=== PATIENT | male | born 1940 | race Caucasian/White ===

== ENCOUNTER 2018-06-20 14:29 | Inpatient (IN) | payer OTHER ==
[~2018-06-20] VITALS: Ht 180.3 cm; Wt 79.0 kg
[~2018-06-20 14:29] MED LIST: DOCU-131 PO; NONE PER PT; OXYC-302 PO
[2018-06-20 14:59] LABS: BASOPHILS # (AUTO) 0.01 x10^3/uL (0-0.1); BASOPHILS % (AUTO) 0 % (0-1); EOSINOPHILS # (AUTO) 0.19 x10^3/uL (0-0.4); EOSINOPHILS % (AUTO) 2 % (1-7); LYMPHOCYTES # (AUTO) 0.28 x10^3/uL (1-3.4); LYMPHOCYTES % (AUTO) 3 % (22-44); MD NO; MEAN CORPUSCULAR HEMOGLOBIN 31.2 pg (27.5-34.5); MEAN CORPUSCULAR HGB CONC 34.1 g/dL (33.2-36.2); MEAN CORPUSCULAR VOLUME 91.5 fL (81-97); MEAN PLATELET VOLUME 8.1 fL (7.4-10.4); MONOCYTES # (AUTO) 0.32 x10^3/uL (0.2-0.8); MONOCYTES % (AUTO) 3 % (2-9); NEUTROPHILS # (AUTO) 9.59 x10^3/uL (1.8-6.8); NEUTROPHILS % (AUTO) 92 % (42-75); PLATELET COUNT 244 x10^3/uL (130-400); RED BLOOD COUNT 4.36 x10^6/uL (4.38-5.82); RED CELL DISTRIBUTION WIDTH 13.9 % (9.4-14.8)
[2018-06-20 15:12] LABS: ANION GAP 8 mmol/L (5-15); CALCIUM 8.3 mg/dL (8.5-10.1); CHLORIDE 100 mmol/L (98-107); CREATININE 1.23 mg/dL (0.7-1.3)
[2018-06-20] MEDS ORDERED: SODIUM CHLORIDE FLUSH 10ML SYR IVF ONE (15:30)
[2018-06-20] MEDS ORDERED: PHENAZOPYRIDINE 200 MG TABLET PO ONE (15:30)
[2018-06-20] MEDS ORDERED: SODIUM CHLORIDE 0.9% 1,000ML IVBOLUS ONE ×2 (15:30→17:30)
[2018-06-20] MEDS ORDERED: ACETAMINOPHEN 500 MG TABLET PO ONE (15:30)
[2018-06-20 15:47] LABS: MICROSCOPIC NOT IND
[2018-06-20 15:52] LABS: CULTURE INDICATED? NO
[2018-06-20] MEDS ORDERED: OMNIPAQUE 350 MG/ML, 100ML BOTTLE ONE (16:18)
[2018-06-20] MEDS ORDERED: METRONIDAZOLE PMX 500MG/100ML 100 ML ONE (17:18)
[2018-06-20] MEDS ORDERED: SODIUM CHLORIDE 0.9% 1,000 ML IV ONE (17:30)
[2018-06-20] MEDS ORDERED: AMPICILLIN/SULBACTAM 3 GM in SODIUM CHLORIDE 0.9% 100 ML IV ONE (17:30)
[2018-06-20] MEDS ORDERED: METRONIDAZOLE IV ONE (17:30)
[2018-06-20] MEDS ORDERED: METRONIDAZOLE PMX 500MG/100ML 100 ML IV ONE (17:30)
[2018-06-20] MEDS ORDERED: ACETAMINOPHEN 325 MG TABLET PO PRN (18:00)
[2018-06-20] MEDS ORDERED: PROMETHAZINE 25 MG/ML, 1ML IM PRN (18:00)
[2018-06-20] MEDS: METRONIDAZOLE PMX 500MG/100ML 100 ML IV SCH (18:00)
[2018-06-20] MEDS ORDERED: ONDANSETRON ODT 4 MG PO PRN (18:00)
[2018-06-20 18:52] VITALS: BP 105/63
[2018-06-20 19:22] VITALS: BP 105/63
[2018-06-20] MEDS: CIPROFLOXACIN/PMX 400MG/200ML 200 ML IV SCH (20:45)
[2018-06-20] MEDS: SODIUM CHLORIDE 0.9% 1,000 ML IV SCH (20:45)
[2018-06-20] MEDS: LACTOBACILLUS CHEW TABLET PO SCH (20:46)
[2018-06-20] MEDS: ENOXAPARIN 40 MG/0.4 ML SQ SCH (20:46)
[2018-06-21] MEDS: METRONIDAZOLE PMX 500MG/100ML 100 ML IV SCH ×3 (00:22→15:13)
[2018-06-21 00:24] VITALS: BP 116/73
[2018-06-21 05:13] LABS: BASOPHILS % (AUTO) 0 % (0-1); EOSINOPHILS # (AUTO) 0.32 x10^3/uL (0-0.4); EOSINOPHILS % (AUTO) 6 % (1-7); LYMPHOCYTES # (AUTO) 0.36 x10^3/uL (1-3.4); LYMPHOCYTES % (AUTO) 7 % (22-44); MD NO; MEAN CORPUSCULAR HEMOGLOBIN 30.3 pg (27.5-34.5); MEAN CORPUSCULAR HGB CONC 32.7 g/dL (33.2-36.2); MEAN CORPUSCULAR VOLUME 92.7 fL (81-97); MEAN PLATELET VOLUME 8.5 fL (7.4-10.4); MONOCYTES # (AUTO) 0.34 x10^3/uL (0.2-0.8); MONOCYTES % (AUTO) 6 % (2-9); NEUTROPHILS # (AUTO) 4.37 x10^3/uL (1.8-6.8); NEUTROPHILS % (AUTO) 81 % (42-75); PLATELET COUNT 190 x10^3/uL (130-400); RED BLOOD COUNT 3.67 x10^6/uL (4.38-5.82); RED CELL DISTRIBUTION WIDTH 13.9 % (9.4-14.8)
[2018-06-21 05:24] LABS: ANION GAP 6 mmol/L (5-15); CALCIUM 7.5 mg/dL (8.5-10.1); CHLORIDE 106 mmol/L (98-107); CREATININE 0.84 mg/dL (0.7-1.3)
[2018-06-21 06:52] VITALS: BP 100/63
[2018-06-21] MEDS: CIPROFLOXACIN/PMX 400MG/200ML 200 ML IV SCH ×2 (08:45→21:03)
[2018-06-21] MEDS: LACTOBACILLUS CHEW TABLET PO SCH ×3 (08:45→21:03)
[2018-06-21] MEDS: SODIUM CHLORIDE 0.9% 1,000 ML IV SCH (10:37)
[2018-06-21 12:00] LABS: CLOSTRIDIUM DIFFICILE ANTIGEN NEGATIVE; CLOSTRIDIUM DIFFICILE TOXIN NEGATIVE (Negative)
[2018-06-21 12:06] VITALS: BP 137/77
[2018-06-21] MEDS: ENOXAPARIN 40 MG/0.4 ML SQ SCH (17:50)
[2018-06-21 19:52] VITALS: BP 130/82
[2018-06-22] MEDS: SODIUM CHLORIDE 0.9% 1,000 ML IV SCH ×2 (00:25→17:06)
[2018-06-22] MEDS: METRONIDAZOLE PMX 500MG/100ML 100 ML IV SCH ×3 (00:27→17:06)
[2018-06-22 02:22] VITALS: BP 114/70
[2018-06-22 05:19] LABS: BASOPHILS % (AUTO) 0 % (0-1); EOSINOPHILS # (AUTO) 0.32 x10^3/uL (0-0.4); EOSINOPHILS % (AUTO) 12 % (1-7); LYMPHOCYTES # (AUTO) 0.75 x10^3/uL (1-3.4); LYMPHOCYTES % (AUTO) 28 % (22-44); MD NO; MEAN CORPUSCULAR HEMOGLOBIN 31.7 pg (27.5-34.5); MEAN CORPUSCULAR HGB CONC 34.5 g/dL (33.2-36.2); MEAN CORPUSCULAR VOLUME 91.9 fL (81-97); MEAN PLATELET VOLUME 8.6 fL (7.4-10.4); MONOCYTES # (AUTO) 0.44 x10^3/uL (0.2-0.8); MONOCYTES % (AUTO) 16 % (2-9); NEUTROPHILS # (AUTO) 1.15 x10^3/uL (1.8-6.8); NEUTROPHILS % (AUTO) 43 % (42-75); PLATELET COUNT 196 x10^3/uL (130-400); RED BLOOD COUNT 3.68 x10^6/uL (4.38-5.82); RED CELL DISTRIBUTION WIDTH 13.4 % (9.4-14.8)
[2018-06-22 05:25] LABS: ANION GAP 8 mmol/L (5-15); CHLORIDE 105 mmol/L (98-107); CREATININE 0.69 mg/dL (0.7-1.3)
[2018-06-22 08:09] VITALS: BP 123/73
[2018-06-22] MEDS: LACTOBACILLUS CHEW TABLET PO SCH ×3 (09:05→21:10)
[2018-06-22] MEDS: CIPROFLOXACIN/PMX 400MG/200ML 200 ML IV SCH ×2 (12:27→21:10)
[2018-06-22 12:52] VITALS: BP 116/75
[2018-06-22] MEDS: ENOXAPARIN 40 MG/0.4 ML SQ SCH (17:58)
[2018-06-22 20:57] VITALS: BP 122/72
[2018-06-23] MEDS: METRONIDAZOLE PMX 500MG/100ML 100 ML IV SCH ×3 (00:54→16:50)
[2018-06-23 02:30] VITALS: BP 131/81
[2018-06-23] MEDS: SODIUM CHLORIDE 0.9% 1,000 ML IV SCH ×2 (03:09→13:39)
[2018-06-23 05:37] LABS: MEAN CORPUSCULAR HGB CONC 33.6 g/dL (33.2-36.2); MEAN CORPUSCULAR VOLUME 92.1 fL (81-97); MEAN PLATELET VOLUME 8.3 fL (7.4-10.4); PLATELET COUNT 229 x10^3/uL (130-400); RED BLOOD COUNT 3.89 x10^6/uL (4.38-5.82); RED CELL DISTRIBUTION WIDTH 13.4 % (9.4-14.8)
[2018-06-23 05:43] LABS: ALBUMIN 2.6 g/dL (3.4-5.0); ANION GAP 7 mmol/L (5-15); CALCIUM 8.2 mg/dL (8.5-10.1); CHLORIDE 104 mmol/L (98-107)
[2018-06-23 05:49] LABS: ALANINE AMINOTRANSFERASE 25 U/L (12-78); ALKALINE PHOSPHATASE 50 U/L (45-117); BILIRUBIN,TOTAL 0.6 mg/dL (0.2-1.0); CREATININE 0.64 mg/dL (0.7-1.3); TOTAL PROTEIN 6.1 g/dL (6.4-8.2)
[2018-06-23 06:46] VITALS: BP 121/69
[2018-06-23 06:47] LABS: MD YES
[2018-06-23 06:50] LABS: EOS#(MANUAL) 0.18 x10^3/uL (0.0-0.4); EOS% (MANUAL) 8 % (1-7); LYMPHS% (MANUAL) 39 % (22-44); MONOS#(MANUAL) 0.28 x10^3/uL (0.3-2.7); MONOS% (MANUAL) 12 % (2-9); SEG#(MANUAL) 0.94 x10^3/uL (1.8-6.8); SEGS% (MANUAL) 41 % (42-75)
[2018-06-23 06:51] LABS: <PLATELET ESTIMATE> ADEQUATE; <PLT MORPHOLOGY> NORMAL PLT MORPH; <RBC MORPHOLOGY> NORMAL
[2018-06-23] MEDS ORDERED: POTASSIUM CHLORIDE 20 MEQ TAB.ER.PRT PO ONE (08:30)
[2018-06-23] MEDS: LACTOBACILLUS CHEW TABLET PO SCH ×3 (08:58→20:44)
[2018-06-23 12:24] VITALS: BP 122/77
[2018-06-23 13:38] VITALS: BP 125/73
[2018-06-23] MEDS: CEFTRIAXONE 2 GM in SODIUM CHLORIDE 0.9% 50 ML IV SCH (13:39)
[2018-06-23] MEDS: ENOXAPARIN 40 MG/0.4 ML SQ SCH (16:51)
[2018-06-23 20:00] VITALS: BP 113/73
[2018-06-24 01:10] VITALS: BP 126/80
[2018-06-24] MEDS: METRONIDAZOLE PMX 500MG/100ML 100 ML IV SCH (01:14)
[2018-06-24] MEDS: SODIUM CHLORIDE 0.9% 1,000 ML IV SCH (05:26)
[2018-06-24 05:45] LABS: CHLORIDE 106 mmol/L (98-107); MEAN CORPUSCULAR HGB CONC 34.4 g/dL (33.2-36.2); MEAN PLATELET VOLUME 8.6 fL (7.4-10.4); PLATELET COUNT 238 x10^3/uL (130-400); RED BLOOD COUNT 3.81 x10^6/uL (4.38-5.82); RED CELL DISTRIBUTION WIDTH 13.5 % (9.4-14.8)
[2018-06-24 05:52] LABS: ALANINE AMINOTRANSFERASE 51 U/L (12-78); ALBUMIN 2.6 g/dL (3.4-5.0); ALKALINE PHOSPHATASE 49 U/L (45-117); ANION GAP 6 mmol/L (5-15); BILIRUBIN,TOTAL 0.3 mg/dL (0.2-1.0); CALCIUM 8.1 mg/dL (8.5-10.1); CREATININE 0.68 mg/dL (0.7-1.3); TOTAL PROTEIN 6.1 g/dL (6.4-8.2)
[2018-06-24 06:36] LABS: BASOPHILS # (AUTO) 0.01 x10^3/uL (0-0.1); BASOPHILS % (AUTO) 0 % (0-1); EOSINOPHILS # (AUTO) 0.21 x10^3/uL (0-0.4); EOSINOPHILS % (AUTO) 7 % (1-7); LYMPHOCYTES # (AUTO) 1.08 x10^3/uL (1-3.4); LYMPHOCYTES % (AUTO) 37 % (22-44); MD SCAN; MONOCYTES # (AUTO) 0.44 x10^3/uL (0.2-0.8); MONOCYTES % (AUTO) 15 % (2-9); NEUTROPHILS % (AUTO) 41 % (42-75)
[2018-06-24 06:49] VITALS: BP 131/87
[2018-06-24] MEDS ORDERED: METR500T PO (07:43)
[2018-06-24] MEDS ORDERED: CIPR500T87 PO (07:43)
[2018-06-24] MEDS ORDERED: MAGNESIUM SULFATE PMX 2GM/50ML 50 ML IV ONE (08:00)
[2018-06-24] MEDS: CEFTRIAXONE 2 GM in SODIUM CHLORIDE 0.9% 50 ML IV SCH (08:04)
[2018-06-24] MEDS: LACTOBACILLUS CHEW TABLET PO SCH (09:08)
== END 2018-06-24 10:20 | disposition home or self-care (01) | DRG 871 ==
LOC: ED 15:02 → EDIP 17:37 → 3NW 18:29
PROVIDERS: ADMIT Internal Medicine; ATTEND Internal Medicine
DX: A41.9 Sepsis, unspecified organism (principal); N17.0 Acute kidney failure with tubular necrosis; K57.32 Diverticulitis of large intestine without perforation or abscess without bleeding; C64.9 Malignant neoplasm of unspecified kidney, except renal pelvis; E87.1 Hypo-osmolality and hyponatremia; K21.9 Gastro-esophageal reflux disease without esophagitis; I10 Essential (primary) hypertension; Z90.5 Acquired absence of kidney; Z82.49 Family history of ischemic heart disease and other diseases of the circulatory system; I95.9 Hypotension, unspecified; Z88.0 Allergy status to penicillin
CPT/HCPCS: 36415; 71045; 74177; 80048; 80053; 81003; 82040; 83605; 83735; 84100; 85025; 87040; 87324; 89055; 93005; 96365; 99285; G0378; J0696; J0744; J1650; Q9967; J3475; J7030

== ENCOUNTER → 2018-07-13 | Outpatient (CLI) | payer OTHER ==
[~2018-07-13] MED LIST changes: +CIPR500T87 PO; +METR500T PO
[2018-07-13 09:45] LABS: MICROSCOPIC NOT IND
[2018-07-13 09:46] LABS: CULTURE INDICATED? NO
[2018-07-13 09:48] LABS: BASOPHILS # (AUTO) 0.01 x10^3/uL (0-0.1); BASOPHILS % (AUTO) 0 % (0-1); EOSINOPHILS # (AUTO) 0.12 x10^3/uL (0-0.4); EOSINOPHILS % (AUTO) 3 % (1-7); LYMPHOCYTES # (AUTO) 1.18 x10^3/uL (1-3.4); LYMPHOCYTES % (AUTO) 25 % (22-44); MD NO; MEAN CORPUSCULAR HEMOGLOBIN 31.4 pg (27.5-34.5); MEAN CORPUSCULAR HGB CONC 33.7 g/dL (33.2-36.2); MEAN PLATELET VOLUME 8.3 fL (7.4-10.4); MONOCYTES # (AUTO) 0.64 x10^3/uL (0.2-0.8); MONOCYTES % (AUTO) 14 % (2-9); NEUTROPHILS # (AUTO) 2.71 x10^3/uL (1.8-6.8); NEUTROPHILS % (AUTO) 58 % (42-75); PLATELET COUNT 266 x10^3/uL (130-400); RED BLOOD COUNT 4.63 x10^6/uL (4.38-5.82); RED CELL DISTRIBUTION WIDTH 14.9 % (9.4-14.8)
[2018-07-13 09:50] LABS: INTERNATIONAL NORMALIZED RATIO 1.01 (0.93-1.1); PROTHROMBIN TIME 10.5 Seconds (9.6-11.5)
[2018-07-13 09:52] LABS: ANION GAP 9 mmol/L (5-15); CALCIUM 8.8 mg/dL (8.5-10.1); CHLORIDE 100 mmol/L (98-107); CREATININE 0.83 mg/dL (0.7-1.3)
== END | disposition home or self-care (01) ==
LOC: STAR 09:03
PROVIDERS: ATTEND Neurological Surgery
DX: Z01.818 Encounter for other preprocedural examination (principal); M48.062 Spinal stenosis, lumbar region with neurogenic claudication; Z88.1 Allergy status to other antibiotic agents; Z87.891 Personal history of nicotine dependence; Z85.53 Personal history of malignant neoplasm of renal pelvis
CPT/HCPCS: 36415; 80048; 81003; 85025; 85610; 85730

== ENCOUNTER 2019-02-26 18:11 | Emergency (ER) | payer MEDICARE, OTHER ==
[~2019-02-26] VITALS: Ht 180.3 cm; Wt 80.0 kg
[~2019-02-26 18:11] MED LIST changes: +OXYC1TAB7 PO; +TIZA2TAB PO
--- NOTE | 2019-02-26 18:36 | NUR ---
XR AT BS.
[2019-02-26] MEDS ORDERED: HYDROcodone/APAP 10/325 MG TABLET ONE (18:51)
[2019-02-26] MEDS ORDERED: HYDROcodone/APAP 10/325 MG TABLET PO ONE (19:00)
--- NOTE | 2019-02-26 19:50 | NUR ---
AWAITING RAD TO BRING PT COPY OF XRAY PER PA REQUEST. DIVISION HEAD AT BEDSIDE FOR SPLINT APPLICATION
[2019-02-26 20:27] VITALS: BP 151/99
== END 2019-02-26 20:29 | disposition home or self-care (01) ==
LOC: ED 20:01
DX: M79.645 Pain in left finger(s) (principal); M25.532 Pain in left wrist; W18.30XA Fall on same level, unspecified, initial encounter; Y93.89 Activity, other specified; Y92.009 Unspecified place in unspecified non-institutional (private) residence as the place of occurrence of the external cause; Y99.8 Other external cause status
CPT/HCPCS: 29125; 99283

== ENCOUNTER 2019-02-26 23:54 | Emergency (ER) | payer MEDICARE ==
[~2019-02-26] VITALS: Ht 180.3 cm; Wt 79.5 kg
[2019-02-26 23:55] VITALS: BP 150/95
--- NOTE | 2019-02-27 00:13 | NUR ---
HAS BROKEN LEFT WRIST WAS SEEN HERE FOR SAME, TOOK SPLINT OFF D/T PAIN. APPLIED ICE PACK AND ELEVATED LEFT WRIST
[2019-02-27] MEDS ORDERED: OXYcodone/APAP 5/325MG TABLET ONE (00:15)
--- NOTE | 2019-02-27 00:16 | NUR ---
pt medicated per mar
[2019-02-27] MEDS ORDERED: OXYcodone/APAP 5/325MG TABLET PO ONE (00:30)
== END 2019-02-27 01:28 | disposition home or self-care (01) ==
LOC: ED 02-27 01:15
DX: S52.502A Unspecified fracture of the lower end of left radius, initial encounter for closed fracture (principal); X58.XXXA Exposure to other specified factors, initial encounter; Y93.89 Activity, other specified; Y92.89 Other specified places as the place of occurrence of the external cause; Y99.8 Other external cause status
CPT/HCPCS: 99283

== ENCOUNTER 2021-02-06 20:58 | Emergency (ER) | payer MEDICARE ==
[~2021-02-06] VITALS: Ht 180.3 cm; Wt 81.4 kg
[~2021-02-06 20:58] MED LIST changes: -OXYC-302 PO; +OXYC1TAB14 PO; +TIZA-106 PO; -TIZA2TAB PO
[2021-02-06] MEDS ORDERED: OMNIPAQUE 350 MG/ML, 100ML BOTTLE ONE (22:00)
--- NOTE | 2021-02-06 22:08 | NUR ---
PT HERE FOR LOWER ABD PAIN X SEVERAL DAYS. PIV PLACED. PT UP TO BATHROOM FOR UA SAMPLE.
--- NOTE | 2021-02-06 22:21 | NUR ---
UA SENT TO LAB, PT RESTING WITH NO NEEDS AT THIS TIME.
[2021-02-06 22:24] LABS: BASOPHILS % (AUTO) 0 % (0-1); EOSINOPHILS % (AUTO) 3 % (1-7); LYMPHOCYTES % (AUTO) 11 % (22-44); MEAN CORPUSCULAR HGB CONC 33.8 g/dL (33.2-36.2); MEAN PLATELET VOLUME 8.3 fL (7.4-10.4); MONOCYTES % (AUTO) 10 % (2-9); NEUTROPHILS % (AUTO) 76 % (42-75); PLATELET COUNT 218 x10^3/uL (130-400); RED BLOOD COUNT 4.09 x10^6/uL (4.38-5.82)
[2021-02-06 22:28] LABS: MICROSCOPIC NOT IND
[2021-02-06 22:30] LABS: MD NO
[2021-02-06 22:50] LABS: CHLORIDE 101 mmol/L (98-107)
[2021-02-06 22:59] LABS: ALANINE AMINOTRANSFERASE 23 U/L (12-78); ALBUMIN 3.5 g/dL (3.4-5.0); ALKALINE PHOSPHATASE 78 U/L (45-117); ANION GAP 9 mmol/L (5-15); BILIRUBIN,TOTAL 0.3 mg/dL (0.2-1.0); CALCIUM 8.5 mg/dL (8.5-10.1); CREATININE 0.77 mg/dL (0.7-1.3); TOTAL PROTEIN 7.3 g/dL (6.4-8.2); TROPONIN I < 0.015 ng/mL (0.000-0.045)
--- NOTE | 2021-02-07 | NUR ---
PT RESTING WITH NO NEEDS AT THIS TIME. VSS. PT TO BE RE EVALUATED BY ERP
[2021-02-07 00:32] VITALS: BP 138/84
--- NOTE | 2021-02-07 00:58 | NUR ---
Patient given discharge instructions and they have confirmed that they understand the instructions. Patient ambulatory with steady gait.
== END 2021-02-07 01:00 | disposition home or self-care (01) ==
LOC: ED 02-07 00:30
DX: K57.32 Diverticulitis of large intestine without perforation or abscess without bleeding (principal); Z88.0 Allergy status to penicillin
CPT/HCPCS: 36415; 74177; 80053; 81003; 83690; 84484; 85025; 99285; Q9967

== ENCOUNTER → 2021-04-02 | Outpatient (CLI) | payer MEDICARE | END | disposition home or self-care (01) | LOC: CVU 08:35 | PROVIDERS: ATTEND Internal Medicine Cardiovascular Disease | DX: I08.0 Rheumatic disorders of both mitral and aortic valves (principal); R06.02 Shortness of breath; R00.0 Tachycardia, unspecified | CPT/HCPCS: 93306; 93356 ==